=== PATIENT | female | born 1975 | race African-American/Black ===

== ENCOUNTER 2020-05-02 10:40 | Emergency (ER) | payer OTHER ==
[~2020-05-02] VITALS: Ht 160 cm; Wt 88.0 kg
[2020-05-02] MEDS ORDERED: ELIQUIS5 MG PO (10:47)
[2020-05-02] MEDS ORDERED: SYNTHROID125 MCG PO (10:48)
[2020-05-02] MEDS ORDERED: CETIRIZINE HCL10 MG PO (10:48)
[2020-05-02] MEDS ORDERED: FERROUS SULFAT325 MG PO (10:48)
[2020-05-02] MEDS ORDERED: VICTOZA 3-0.6 MG/0.1 SQ (10:49)
[2020-05-02] MEDS ORDERED: SEGLUROMET 7.51 EAC1 PO (10:49)
[2020-05-02] MEDS ORDERED: PANTOPRAZOLE SO40 MG PO (10:49)
== END 2020-05-02 19:49 | disposition home or self-care (01) ==
LOC: ER 10:40
DX: N92.5 Other specified irregular menstruation (principal); D25.9 Leiomyoma of uterus, unspecified; D51.0 Vitamin B12 deficiency anemia due to intrinsic factor deficiency

== ENCOUNTER 2020-05-08 12:13 | Inpatient (IN) | payer OTHER ==
[~2020-05-08] VITALS: Ht 160 cm; Wt 87.5 kg
[~2020-05-08 12:13] MED LIST: CETIRIZINE HCL10 MG PO; ELIQUIS5 MG PO; FERROUS SULFAT325 MG PO; PANTOPRAZOLE SO40 MG PO; SEGLUROMET 7.51 EAC1 PO; SYNTHROID125 MCG PO; VICTOZA 3-0.6 MG/0.1 SQ
[2020-05-09] MEDS ORDERED: FUSION PLUS CA1 EACH PO (08:08)
== END 2020-05-17 13:04 | DRG 743 ==
LOC: SURG-SUITE 12:13 → OB/GYN 12:13 → SURG-SUITE 12:53
PROVIDERS: ADMIT Obstetrics & Gynecology; ATTEND Obstetrics & Gynecology
PROC: 30233N1 Transfusion of Nonautologous Red Blood Cells into Peripheral Vein, Percutaneous Approach (ICD-10-PCS; 2020-05-08)
PROC: 0UT70ZZ Resection of Bilateral Fallopian Tubes, Open Approach (ICD-10-PCS; 2020-05-12)
PROC: 0UT90ZL Resection of Uterus, Supracervical, Open Approach (ICD-10-PCS; principal; 2020-05-12 10:00)
DX: D25.1 Intramural leiomyoma of uterus (principal); N92.1 Excessive and frequent menstruation with irregular cycle; D50.0 Iron deficiency anemia secondary to blood loss (chronic); D51.0 Vitamin B12 deficiency anemia due to intrinsic factor deficiency; E11.9 Type 2 diabetes mellitus without complications; Z20.828 Contact with and (suspected) exposure to other viral communicable diseases; Z79.01 Long term (current) use of anticoagulants; Z79.4 Long term (current) use of insulin

== ENCOUNTER 2020-07-31 10:58 | Outpatient (CLI) | payer OTHER ==
[~2020-07-31 10:58] MED LIST changes: +FUSION PLUS CA1 EACH PO
== END 2020-07-31 11:13 | disposition home or self-care (01) ==
LOC: NUCLEAR 10:58
DX: I80.02 Phlebitis and thrombophlebitis of superficial vessels of left lower extremity (principal)